=== PATIENT | male | born 1950 | race Caucasian/White ===

== ENCOUNTER 2018-10-11 17:37 | Emergency (ER) | payer MEDICARE ==
[~2018-10-11] VITALS: Ht 162.6 cm; Wt 70.5 kg
[2018-10-11 17:56] VITALS: Ht 162.6 cm; Wt 70.5 kg
[2018-10-11] MEDS ORDERED: BP MEDICATION (17:56)
[2018-10-11] MEDS ORDERED: GOUT MEDICATION (17:57)
[2018-10-11 19:04] LABS: BASOPHILS 0.1 % (0-2); EOSINOPHILS 0.8 % (0-7); HEMATOCRIT 46.5 % (42.0-54.0); HEMOGLOBIN 16.6 g/dL (13.5-17.5); IMMATURE GRANULOCYTES 0.3 % (0-5); MCH 34.2 pg (26.0-34.0); MCHC 35.7 g/dL (31.0-37.0); MCV 95.7 fL (80.0-100.0); MEAN PLATELET VOLUME 10.2 fL (7.4-10.4); MONOCYTES 7.7 % (2-11); NEUTROPHILS 77.1 % (40-80); PLATELET COUNT 219 10x3/uL (130-400); RBC 4.86 10x6/uL (4.20-6.10); WBC 10.7 10x3/uL (4.8-10.8)
[2018-10-11 19:20] LABS: APPEARANCE CLEAR (CLEAR); BILIRUBIN NEGATIVE (NEGATIVE); COLOR YELLOW (YELLOW); GLUCOSE NEGATIVE (NEGATIVE); KETONE NEGATIVE (NEGATIVE); NITRITE NEGATIVE (NEGATIVE); PROTEIN NEGATIVE (NEGATIVE); SPECIFIC GRAVITY 1.025 (1.005-1.020); UROBILINOGEN NORMAL (NORMAL)
[2018-10-11 19:27] LABS: ALBUMIN 4.1 g/dL (3.4-5.0); ANION GAP 16.3 mmol/L (8-16); BILIRUBIN - TOTAL 0.61 mg/dL (0.2-1.3); CALCIUM 9.7 mg/dL (8.5-10.1); CARBON DIOXIDE 28.5 mmol/L (21.0-32.0); CREATININE - SERUM 1.4 mg/dL (0.6-1.3); POTASSIUM - SERUM 3.8 mmol/L (3.5-5.1)
[2018-10-11 19:29] LABS: UDS - AMPHET NEGATIVE QUAL (NEGATIVE); UDS - BARB NEGATIVE QUAL (NEGATIVE); UDS - BENZO NEGATIVE QUAL (NEGATIVE); UDS - COCAINE NEGATIVE QUAL (NEGATIVE); UDS - OPIATE NEGATIVE QUAL (NEGATIVE); UDS - PCP NEGATIVE QUAL (NEGATIVE); UDS - THC NEGATIVE QUAL (NEGATIVE)
[2018-10-11 19:38] LABS: MAGNESIUM - SERUM 2.3 mg/dL (1.8-2.4); T4 THYROXINE 10.9 ug/dL (4.7-13.3); THYROID STIMULATING HORMONE 1.93 uIU/mL (0.36-3.74)
[2018-10-11 20:11] VITALS: BP 125/74
== END 2018-10-11 20:12 | disposition home or self-care (01) ==
LOC: D.ER 17:37
PROVIDERS: Family Medicine
DX: T67.5XXA Heat exhaustion, unspecified, initial encounter (principal); X58.XXXA Exposure to other specified factors, initial encounter; R44.3 Hallucinations, unspecified; I10 Essential (primary) hypertension; F17.210 Nicotine dependence, cigarettes, uncomplicated

== ENCOUNTER 2018-10-12 06:43 | Inpatient (IN) | payer MEDICARE ==
[~2018-10-12 06:43] MED LIST: BP MEDICATION; GOUT MEDICATION
[2018-10-12 10:12] VITALS: BP 150/79
[2018-10-12 17:26] VITALS: BP 127/81
[2018-10-12 22:52] VITALS: BP 140/70
[2018-10-13 06:51] LABS: ALBUMIN 3.4 g/dL (3.4-5.0); ALKALINE PHOSPHATASE 66 U/L (46-116); BILIRUBIN - TOTAL 0.81 mg/dL (0.2-1.3); CALCIUM 8.6 mg/dL (8.5-10.1); CARBON DIOXIDE 27.9 mmol/L (21.0-32.0); CHLORIDE - SERUM 103 mmol/L (98-107); CHOL - HDL RATIO 4.8 ratio (2.3-4.9); CHOLESTEROL, TOTAL 145 mg/dL (0-200); GLUCOSE 127 mg/dL (74-106); HDL CHOLESTEROL 30 mg/dL (32-96); LDL CHOLESTEROL 95 mg/dL (0-100); LDL-HDL RATIO 3.2 ratio (1.5-3.5); POTASSIUM - SERUM 3.4 mmol/L (3.5-5.1); PROTEIN - SERUM 6.8 g/dL (6.4-8.2); SODIUM 140 mmol/L (136-145); TRIGLYCERIDE 101 mg/dL (30-200)
[2018-10-13 06:55] LABS: ALT (SGPT) 24 U/L (10-68); CALC OSMOLALITY 281 mosm/kg (275-300); UREA NITROGEN 15 mg/dL (7-18); eGFR NON AFRICAN AMERICAN 79 mL/min (90-120)
[2018-10-13 07:11] LABS: BASOPHILS 0.2 % (0-2); EOSINOPHILS 4.4 % (0-7); HEMATOCRIT 45.8 % (42.0-54.0); HEMOGLOBIN 15.8 g/dL (13.5-17.5); IMMATURE GRANULOCYTES 0.1 % (0-5); LYMPHOCYTES 24.3 % (15-50); MCH 32.9 pg (26.0-34.0); MCHC 34.5 g/dL (31.0-37.0); MCV 95.4 fL (80.0-100.0); MEAN PLATELET VOLUME 10.8 fL (7.4-10.4); MONOCYTES 7.1 % (2-11); NEUTROPHILS 63.9 % (40-80); PLATELET COUNT 221 10x3/uL (130-400); WBC 9.2 10x3/uL (4.8-10.8)
[2018-10-13 09:00] VITALS: BP 139/82
[2018-10-13 10:17] VITALS: BMI 29.5
[2018-10-13 11:53] VITALS: BP 139/82
[2018-10-13 19:03] VITALS: Wt 82.5 kg
[2018-10-13 19:31] VITALS: BP 131/66
[2018-10-14 07:14] LABS: RAPID PLASMA REAGIN Non Reactive (Non Reactive)
[2018-10-14 09:56] VITALS: BP 147/81
[2018-10-14 10:13] VITALS: BP 147/81
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
[2018-10-14 20:00] VITALS: BP 122/67
[2018-10-15 10:51] VITALS: BP 138/79
--- NOTE | 2018-10-15 12:25 | PN ---
PATIENT:CHERYL MAN MEDICAL RECORD: [id number] LOCATION:JonathanAMYJeannette Escobedo112 ADMISSION DATE: 10/12/18 PROGRESS NOTE DATE OF SERVICE: 10/14/2018 SUBJECTIVE: The patient's case was discussed with staff. He has no new complaint. OBJECTIVE: The patient is settling into the unit well. He has no evidence of acute dangerousness other than the fact that he needs supervision. He is tolerating his medicines well. I am going to start him on Aricept. ASSESSMENT: No change in diagnoses. PLAN: Information regarding his social situation is still limited. It is my opinion that he is not able to fully care for himself. What is largely unknown at this point is exactly the degree of his impairment and how much we can rectify that along with what environment or setting would be the least restrictive to meet his needs. TRANSINT:[id number] Voice Confirmation ID: [id number] DOCUMENT ID: [id number] NICKY FUNG MD at 1225 CC: [id number] DICTATION DATE: 10/14/18 1553 PLANNING RN: 10/14/18 2207 ADM IN [facility] [address] [place] [address]
[2018-10-15 20:00] VITALS: BP 139/79
[2018-10-16 07:00] VITALS: BP 137/77
--- NOTE | 2018-10-16 12:29 | PN ---
PATIENT:CHERYL MAN MEDICAL RECORD: [id number] LOCATION:MIGUELITO CastilloKayleenKeila ADMISSION DATE: 10/12/18 PROGRESS NOTE DATE OF SERVICE: 10/15/2018 SUBJECTIVE: The patient's case was discussed with staff. He has no new complaint. OBJECTIVE: The patient has no thoughts of harming himself or others. He is tolerating his medicines well. ASSESSMENT: No change in diagnoses. PLAN: Supportive and educational interventions were made. Long-term prognosis is guarded. TRANSINT:[id number] Voice Confirmation ID: [id number] DOCUMENT ID: [id number] NICKY FUNG MD at 1229 CC: [id number] DICTATION DATE: 10/15/18 1228 GEOGRAPHY INSTRUCTOR: 10/15/18 1439 ADM IN [place] [id number] [place] [address]
[2018-10-16 20:15] VITALS: BP 123/71
[2018-10-17 07:00] VITALS: BP 121/76
--- NOTE | 2018-10-17 14:28 | PN ---
PATIENT:CHERYL MAN MEDICAL RECORD: [id number] LOCATION:MIGUELITO Smith ADMISSION DATE: 10/12/18 PROGRESS NOTE DATE OF SERVICE: 10/16/2018 SUBJECTIVE: The patient's case was discussed with staff. He has no new complaint. OBJECTIVE: The patient is significantly impaired cognitively, but has almost no insight about this. He has not been aggressive or disruptive in any significant way. He has had no further hallucinatory experiences. ASSESSMENT: No change in diagnoses. PLAN: Current medicines have been reviewed and will be maintained. Long-term prognosis is guarded. TRANSINT:[id number] Voice Confirmation ID: [id number] DOCUMENT ID: [id number] NICKY FUNG MD at 1428 CC: [id number] DICTATION DATE: 10/16/18 1233 TRANSPLANTER ORCHID: 10/16/[address] [facility] [address] [place] [address]
[2018-10-17 23:46] VITALS: BP 130/64
[2018-10-18 09:00] VITALS: BP 140/80
--- NOTE | 2018-10-18 15:33 | PN ---
PATIENT:CHERYL MAN MEDICAL RECORD: [id number] LOCATION:MIGUELITO Smith ADMISSION DATE: 10/12/18 PROGRESS NOTE DATE OF SERVICE: 10/17/2018 SUBJECTIVE: The patient's case was discussed with staff. He has no new complaint. OBJECTIVE: The patient denies he would seek to harm himself or others. He is tolerating his medicines well. ASSESSMENT: No change in diagnoses. PLAN: Brief supportive and educational interventions were made. Long-term prognosis is guarded. TRANSINT:[id number] Voice Confirmation ID: [id number] DOCUMENT ID: [id number] NICKY FUNG MD at 1533 CC: [id number] DICTATION DATE: 10/17/18 1516 COMMERCIAL LOAN REVIEWER: 10/17/18 1551 ADM IN [place] [id number] [place] [address]
[2018-10-18 20:31] VITALS: BP 132/70
[2018-10-19 08:38] VITALS: BP 135/92
--- NOTE | 2018-10-19 11:35 | PN ---
PATIENT:CHERYL MAN MEDICAL RECORD: [id number] LOCATION:MIGUELITO Smith ADMISSION DATE: 10/12/18 PROGRESS NOTE DATE OF SERVICE: 10/18/2018 SUBJECTIVE: The patient's case was discussed with staff. He has no new complaint. OBJECTIVE: The patient is in good behavioral control with limited insight about his condition. He does tolerate his medicines well. ASSESSMENT: No change in diagnoses. PLAN: The patient has had no psychotic symptoms and no agitation. He is cognitively impaired, and at this point, it is unknown which environment or setting would be the least restrictive for him. TRANSINT:[id number] Voice Confirmation ID: [id number] DOCUMENT ID: [id number] NICKY FUNG MD at 1135 CC: [id number] DICTATION DATE: 10/18/18 1557 BUSINESS MANAGEMENT ASSOCIATE: 10/18/18 1624 ADM IN [place] [id number] [place] [id number]
[2018-10-19 20:00] VITALS: BP 110/65
--- NOTE | 2018-10-20 10:08 | PN ---
PATIENT:CHERYL MAN MEDICAL RECORD: [id number] LOCATION:MIGUELITO Smith ADMISSION DATE: 10/12/18 PROGRESS NOTE DATE OF SERVICE: 10/19/2018 SUBJECTIVE: The patient's case was discussed with staff. He has no new complaint. OBJECTIVE: The patient is in good behavioral control, but impaired cognitively. He denies any thoughts of harming himself or others. He is tolerating his medicines well. ASSESSMENT: No change in diagnoses. PLAN: The patient is going to be given a low dose of trazodone to assist with sleep consolidation. His long-term prognosis is guarded and adult protective services is scheduled to conduct their investigation and find out information that is difficult for us to evaluate. It appears the man has no home, no family, no money and just an old pickup truck with a few belongings in it. He is most definitely in need of 58-nnmd-m-day supervision. What is not clear is what environment is required to provide that. TRANSINT:[id number] Voice Confirmation ID: [id number] DOCUMENT ID: [id number] NICKY FUNG MD at 1008 CC: [id number] DICTATION DATE: 10/19/18 1228 PHYSICIAN LIAISON: 10/19/18 1237 ADM IN [place] [id number] [place] [address]
[2018-10-20 10:46] VITALS: BP 128/68
[2018-10-20 20:00] VITALS: BP 116/70
[2018-10-21 09:17] VITALS: BP 132/75
[2018-10-21 20:41] VITALS: BP 127/66
[2018-10-22 08:15] VITALS: BP 122/70
[2018-10-22 09:20] VITALS: BP 122/70
--- NOTE | 2018-10-22 12:39 | PN ---
PATIENT:CHERYL MAN MEDICAL RECORD: [id number] LOCATION:MIGUELITO Smith ADMISSION DATE: 10/12/18 PROGRESS NOTE DATE OF SERVICE: 10/20/2018 SUBJECTIVE: The patient's case was discussed with staff. He has no new complaint. OBJECTIVE: The patient is sleeping well and eating well. He is impaired cognitively, but has almost no insight about this. At this point, there still are no family members that we have been able to contact and no evidence that he has any place to live other than his truck. ASSESSMENT: No change in diagnoses. PLAN: Current medicines will be maintained. Long-term prognosis is guarded. TRANSINT:[id number] Voice Confirmation ID: [id number] DOCUMENT ID: [id number] NICKY FUNG MD at 1239 CC: [id number] DICTATION DATE: 10/20/18 1015 TRAIN GATE ATTENDANT: 10/20/18 1021 ADM IN [facility] [address] [place] [address]
--- NOTE | 2018-10-22 12:39 | PN ---
PATIENT:CHERYL MAN MEDICAL RECORD: [id number] LOCATION:MIGUELITO Smith ADMISSION DATE: 10/12/18 PROGRESS NOTE DATE OF SERVICE: 10/21/2018 SUBJECTIVE: The patient's case was discussed with staff. He has no new complaint. OBJECTIVE: The patient is in good behavioral control. Unfortunately, he has been having some bizarre perceptual changes. He denies that he would seek to harm himself or others. It appears that he has no close family or anyone who would assist him or take care of him. ASSESSMENT: No change in diagnoses. PLAN: The patient will be maintained on current medicines. I am, however, going to add Celexa for its antidepressant effect. TRANSINT:[id number] Voice Confirmation ID: [id number] DOCUMENT ID: [id number] NICKY FUNG MD at 1239 CC: [id number] DICTATION DATE: 10/21/181803 REINSURANCE CLAIM ANALYST: 10/21/18 181 ADM IN [place] [id number] [place] [id number]
[2018-10-22 20:35] VITALS: BP 119/64
[2018-10-23 08:00] VITALS: BP 158/92
--- NOTE | 2018-10-23 11:14 | PN ---
PATIENT:CHERYL MAN MEDICAL RECORD: [id number] LOCATION:JonathanAMYJeannette EscobedoKeila ADMISSION DATE: 10/12/18 PROGRESS NOTE DATE OF SERVICE: 10/22/2018 SUBJECTIVE: The patient's case was discussed with staff. He has no new complaint. OBJECTIVE: The patient is in good behavioral control and has near euthymic mood. Unfortunately, he has been observed twice in the past 2 days, talking to someone not present. When asked about this, he indicates he does not know what I am talking about and looks genuinely perplexed. ASSESSMENT: No change in diagnoses. PLAN: The patient is going to be treated with a low dose of an antipsychotic medication. His long-term prognosis is guarded. TRANSINT:[id number] Voice Confirmation ID: [id number] DOCUMENT ID: [id number] NICKY FUNG MD at 1114 CC: [id number] DICTATION DATE: 10/22/18 1241 COMPUTER TECHNOLOGY TEACHER: 10/22/18 1251 ADM IN [place] [id number] [place] [id number]
[2018-10-23 20:50] VITALS: BP 146/74
[2018-10-24 08:26] VITALS: BP 129/81
--- NOTE | 2018-10-24 13:42 | PN ---
PATIENT:CHERYL MAN MEDICAL RECORD: [id number] LOCATION:JonathanAMYJeannette JonathanKayleenKeila ADMISSION DATE: 10/12/18 PROGRESS NOTE DATE OF SERVICE: 10/23/2018 SUBJECTIVE: The patient's case was discussed with staff. He has no new complaint. OBJECTIVE: The patient is in good behavioral control with limited insight about his condition. He tolerates his medicines well. ASSESSMENT: No change in diagnoses. PLAN: Current medicines and therapies have been reviewed and will be maintained. The patient is in need of 24 hours a day supervision. Long-term prognosis is guarded. TRANSINT:[id number] Voice Confirmation ID: [id number] DOCUMENT ID: [id number] NICKY FUNG MD at 1342 CC: [id number] DICTATION DATE: 10/23/18 1116 FEDERAL DISTRICT LAW CLERK: 10/23/18 1131 ADM IN [place] [id number] [place] [address]
[2018-10-24 21:25] VITALS: BP 125/66
[2018-10-25 08:00] VITALS: BP 147/88
--- NOTE | 2018-10-25 12:20 | PN ---
PATIENT:CHERYL MAN MEDICAL RECORD: [id number] LOCATION:MIGUELITO Smith ADMISSION DATE: 10/12/18 PROGRESS NOTE DATE OF SERVICE: 10/24/2018 SUBJECTIVE: The patient's case was discussed with staff. He has no new complaint. OBJECTIVE: The patient is in good behavioral control with limited insight about his condition. He does tolerate his medicines well. ASSESSMENT: No change in diagnoses. PLAN: There are issues related to his discharge since he is from [facility] is not wanting to get involved in the case and because he is in [place] and not currently in [facility] adult protective [facility] does not want to get involved in the case. This presents something of a dilemma, which I will discuss with the treatment team tomorrow. TRANSINT:[id number] Voice Confirmation ID: [id number] DOCUMENT ID: [id number] NICKY FUNG MD at 1220 CC: [id number] DICTATION DATE: 10/24/18 1516 ASSISTANT IMPORT MANAGER: 10/24/18 1606 ADM IN [place] [id number] [place] [id number]
[2018-10-25 21:02] VITALS: BP 136/67
[2018-10-26 08:30] VITALS: BP 133/74
--- NOTE | 2018-10-26 09:56 | PN ---
PATIENT:CHERYL MAN MEDICAL RECORD: [id number] LOCATION:FannyEUNICEJeannette EscobedoKeila ADMISSION DATE: 10/12/18 PROGRESS NOTE DATE OF SERVICE: 10/25/2018 SUBJECTIVE: The patient's case was discussed with staff. He has no new complaint. OBJECTIVE: The patient is in good behavioral control with limited insight about his condition. He does tolerate his medicines well. ASSESSMENT: No change in diagnoses. PLAN: The patient is still having some psychotic symptoms. He has been observed again talking to people not present. When asked about this, he dismisses it and minimizes it. As I explained yesterday, Adult Protective Services and both states are not willing to intervene at this point. There are some friends who live in [place] who are not willing to take responsibility for him, but are helping the social research assistant locate a [place] [facility] [place] in the area and are going to assist with getting him placed there. His long-term prognosis is guarded. I am going to maintain him on the antipsychotic medicine. TRANSINT:[id number] Voice Confirmation ID: [id number] DOCUMENT ID: [id number] NICKY FUNG MD at 0956 CC: [id number] DICTATION DATE: 10/25/18 1223 POOL FINISHER: 10/25/18 1241 ADM IN [place] [id number] [place] [address]
[2018-10-26] MEDS ORDERED: CELEXA20 MG PO (15:19)
[2018-10-26] MEDS ORDERED: DONEPEZIL HCL5 MG PO (15:19)
[2018-10-26] MEDS ORDERED: LISINOPRIL10 MG PO (15:19)
[2018-10-26] MEDS ORDERED: LAC-HYDRIN 5226 ML TOPICAL (15:20)
[2018-10-26] MEDS ORDERED: DESERYL PO (15:20)
[2018-10-26] MEDS ORDERED: VITAMIN B-121000 MCG PO (15:20)
[2018-10-26] MEDS ORDERED: PERPHENAZINE2 MG PO (15:20)
[2018-10-26 20:46] VITALS: BP 143/82
[2018-10-27 08:30] VITALS: BP 123/76
--- NOTE | 2018-10-27 15:02 | PN ---
PATIENT:CHERYL MAN MEDICAL RECORD: [id number] LOCATION:MIGUELITO Escobedo112 ADMISSION DATE: 10/12/18 PROGRESS NOTE DATE OF SERVICE: 10/26/2018 SUBJECTIVE: The patient's case was discussed with staff. He has no new complaint. OBJECTIVE: The patient is in good behavioral control, but impaired cognitively. He has been observed talking to people not present again, and when asked about this, he is dismissive and says he was not doing it, was just talking to himself. The observation is different from that and its quality and it is clearly being described as active hallucination. The patient has been evaluated by adult protective services and their assessment does not agree with mine. They assessed him to not be impaired and they are not going to take custody of him. They are, however, going to assist us with the situation and drive him back to his home in [place] and take him to his apartment. Our adoption social worker, who is quite conscientious, has alerted the neighbor who is going to be there to meet them and make sure that there is food and that the utilities are on in the apartment. ASSESSMENT: No change in diagnoses. PLAN: The patient will be transitioned out of the hospital tomorrow and returned to his home in [place]. I think the amount of supervision he is going to receive there is inadequate. He has already told me that he plans to save his money by a truck and then plans to go to [place] to continue with his confucianist purposes. The authorities or at least adult protective services in [place] are aware of this case. I do not know if they will monitor him or not. He will have followup with his primary care physician there in [place]. TRANSINT:[id number] Voice Confirmation ID: [id number] DOCUMENT ID: [id number] NICKY FUNG MD at 1502 CC: [id number] DICTATION DATE: 10/26/18 1518 FOOD AND BEVERAGE LEAD: 10/26/18 1533 DIS IN 10/27/18 [facility] [address] [place] [address]
--- NOTE | 2018-10-28 16:06 | PN ---
PATIENT:CHERYL MAN MEDICAL RECORD: [id number] LOCATION:JonathanAMYJeannette Escobedo112 ADMISSION DATE: 10/12/18 PROGRESS NOTE DATE OF SERVICE: 10/27/2018 SUBJECTIVE: The patient's case was discussed with staff. He has no new complaint. OBJECTIVE: The patient is in good behavioral control. He has a euthymic mood and is very happy about being discharged and going home. ASSESSMENT: No change in diagnoses. PLAN: The patient will be discharged to adult protective services. They are going to drive him back to [place]. Followup will be with his primary care physician in [place]. 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 I think his prognosis is guarded. TRANSINT:[id number] Voice Confirmation ID: [id number] DOCUMENT ID: [id number] NICKY FUNG MD at 1606 CC: [id number] DICTATION DATE: 10/27/18 1515 ELIGIBILITY ANALYST: 10/27/18 1648 DIS IN 10/27/18 [place] [id number] [place] [address]
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
== END 2018-10-27 09:00 | disposition home or self-care (01) | DRG 57 ==
LOC: D.ER 06:43 → D.PSYCH 12:47
PROVIDERS: ADMIT Psychiatry & Neurology Psychiatry; ATTEND Psychiatry & Neurology Psychiatry
DX: G30.9 Alzheimer's disease, unspecified (principal); R44.2 Other hallucinations; F02.81 Dementia in other diseases classified elsewhere, unspecified severity, with behavioral disturbance; I10 Essential (primary) hypertension; J44.9 Chronic obstructive pulmonary disease, unspecified; S01.111D Laceration without foreign body of right eyelid and periocular area, subsequent encounter; W19.XXXD Unspecified fall, subsequent encounter; F17.200 Nicotine dependence, unspecified, uncomplicated